=== PATIENT | male | born 1950 | race Native Hawaiian/Other Pacific Islander ===

== ENCOUNTER 2016-10-19 14:37 | Observation (INO) | payer MEDICARE, MEDICAID ==
[~2016-10-19] VITALS: Ht 170.2 cm; Wt 94.0 kg
[~2016-10-19 14:37] MED LIST: ACET325S8 PO; CLOP75 PO; KLOR20TA6 PO; LISI-363 PO; METO100T PO; OMEP20TA PO; ROSU20 PO; ZOFR4TAB3 SL
[2016-10-19 14:40] VITALS: BP 203/95; PULSE 84; RESP 24; TEMP 98.6; O2SAT 95
[2016-10-19 14:53] VITALS: BP_SYST 183; BP_SYST 196; BP_DIAS 80; BP_DIAS 83; PULSE 73; RESP 18; O2SAT 98
[2016-10-19] MEDS ORDERED: SODIUM CHLORIDE 0.9% FLUSH 10 ML FLUSH IVF PRN (15:00)
[2016-10-19] MEDS ORDERED: NITROGLYCERIN 0.4 MG SL 25 TABS/BTL SL ONE (15:15)
[2016-10-19] MEDS ORDERED: ASPIRIN 325 MG TAB PO ONE (15:15)
[2016-10-19 15:46] LABS: AUTOMATED NEUTROPHIL # 7.5 TH/MM3 (1.8-7.7); BASOPHIL # 0.1 TH/MM3 (0-0.2); BASOPHIL % 0.5 % (0.0-2.0); EOSINOPHIL # 0.1 TH/MM3 (0-0.4); EOSINOPHIL % 0.7 % (0.0-4.0); HEMATOCRIT 44.5 % (39.0-51.0); HEMO FLAGS DIFF FINAL; LYMPH % 19.4 % (9.0-44.0); LYMPHOCYTE # 2.1 TH/MM3 (1.0-4.8); MEAN CORPUSCULAR HGB CONC 32.5 % (32.0-36.0); MONO % 9.7 % (0.0-8.0); NEUT % 69.7 % (16.0-70.0); PLATELET COUNT 163 TH/MM3 (150-450); RED BLOOD COUNT 5.56 MIL/MM3 (4.50-5.90); RED CELL DISTRIBUTION WIDTH 15.1 % (11.6-17.2); WHITE BLOOD COUNT 10.8 TH/MM3 (4.0-11.0)
[2016-10-19 15:53] LABS: APTT (PATIENT) 27.9 SEC (24.3-30.1); PROTHROMBIN TIME - PATIENT 11.4 SEC (9.8-11.6)
[2016-10-19 15:59] LABS: ALT (GPT) 29 U/L (12-78); ANION GAP 9 MEQ/L (5-15); AST (GOT) 21 U/L (15-37); BLOOD UREA NITROGEN 16 MG/DL (7-18); CHLORIDE 100 MEQ/L (98-107); GLOMERULAR FILTRATION RATE 73 ML/MIN (>89); MAGNESIUM 2.3 MG/DL (1.5-2.5); SODIUM (NA) 140 MEQ/L (136-145)
[2016-10-19 16:00] VITALS: BP 156/79; PULSE 75; RESP 16; O2SAT 100
[2016-10-19 16:03] LABS: ALKALINE PHOSPHATASE 91 U/L (45-117); CREATINE KINASE 253 U/L (39-308); TOTAL BILIRUBIN ADULT 0.6 MG/DL (0.2-1.0)
--- NOTE | 2016-10-19 16:11 | RADRPT ---
EXAM DATE/TIME: 10/19/2016 15:17 [facility] COMPARISON: No previous studies available for comparison. INDICATIONS : Chest pain. MEDICAL HISTORY : Myocardial infarction. Hypercholesterolemia. Coronary artery disease. SURGICAL HISTORY : Stent. ENCOUNTER: Initial ACUITY: 3 days PAIN SCORE: 10/10 LOCATION: Bilateral chest FINDINGS: The lungs are clear without infiltrate, nodule, or mass. There is no appreciable pleural effusion fo r technique. Slight cardiomegaly is seen. CONCLUSION: Slight cardiomegaly. Lincoln Kothari MD on October 19, 2016 at 16:08 Board Certified Radiologist. This report was verified electronically.
[2016-10-19 16:17] LABS: CKMB 1.7 NG/ML (0.5-3.6)
--- NOTE | 2016-10-19 16:57 | PD ---
HPI Chief Complaint: Cardiac Complaint Time Seen by Provider: 15:07 Travel History International Travel<30 days: No Contact w/Intl Traveler<30days: No Traveled to known affect area: No History of Present Illness HPI 65 y/o male presents with chest pain over the past couple of days. He denies other associated symptoms. He states he had a heart workup with an MRI where he ate something couple months ago but he doesn't remember what the test was called. He states this was through his commercial analyst Dr. Eugene. He states that he has had heart stents before and that was his last heart catheterization. He does not recall the exact date. He states he did not take an aspirin since he is on Plavix. He denies any modifying factors. Quality is pressure. Severity is moderate. He states he follows with his commercial analyst regularly. He states the pain goes into his left arm. PFSH Past Medical History Arthritis: No Asthma: No Autoimmune Disease: No Blood Disorders: No Anxiety: No Depression: No Heart Rhythm Problems: No Cancer: No Cardiovascular Problems: Yes (STENT X 6) High Cholesterol: Yes Chemotherapy: No Chest Pain: No Congestive Heart Failure: No COPD: No Cerebrovascular Accident: No Coronary Artery Disease: Yes Diabetes: No Patient Takes Glucophage: No Diminished Hearing: No Endocrine: No Gastrointestinal Disorders: No GERD: No Glaucoma: No Genitourinary: No Headaches: No Hepatitis: No Hiatal Hernia: No Heparin Induced Thrombocytopen: No Hypertension: Yes Immune Disorder: No Implanted Vascular Access Dvce: No Kidney Stones: No Medical other: Yes (GOUT) Musculoskeletal: No Neurologic: No Psychiatric: No Reproductive: No Respiratory: No Integumentary: No Immunizations Current: Yes Radiation Therapy: No Renal Failure: No Seizures: No Sickle Cell Disease: No Sleep Apnea: Yes Thyroid Disease: No Ulcer: No ?: Not Past Surgical History Abdominal Surgery: Yes (GALL BLADDER REMOVED) AICD: No Arteriovenous Shunt: No Body Medical Devices: CORONARY STENT 4 months ago Cardiac Surgery: Yes (STENT X 6) Cholecystectomy: Yes Ear Surgery: No Endocrine Surgery: No Eye Surgery: No Genitourinary Surgery: No Gynecologic Surgery: No Insulin Pump: No Joint Replacement: No Neurologic Surgery: No Oral Surgery: No Pacemaker: No Thoracic Surgery: No Tonsillectomy: Yes Other Surgery: Yes (VSTENTS X 6) Social History Alcohol Use: Yes (on occasion) Tobacco Use: No Substance Use: No Allergies-Medications (Allergen,Severity, Reaction): Coded Allergies: No Known Allergies (Verified , 07/16/13) Reported Meds & Prescriptions Reported Meds & Active Scripts Active Review of Systems Except as stated in HPI: all other systems reviewed are Neg Physical Exam Exam Limitations: Poor Historian Narrative GENERAL: Well-nourished, well-developed patient. SKIN: Warm and dry. HEAD: Normocephalic and atraumatic. EYES: No injection or drainage. ENT: No nasal drainage noted. NECK: Supple, trachea midline. CARDIOVASCULAR: Regular rate and rhythm RESPIRATORY: Breath sounds equal bilaterally. No accessory muscle use. GASTROINTESTINAL: Abdomen soft, non-tender, nondistended. NEUROLOGICAL: Awake and alert. Moves all extremities. Normal speech. Data Data Last Documented VS Vital Signs Date Time Temp Pulse Resp B/P Pulse Ox O2 Delivery O2 Flow Rate FiO2 10/19/16 16:00 75 16 156/79 100 Room Air 10/19/16 14:40 98.6 Orders Electrocardiogram (10/19/16 14:49) Ckmb (Isoenzyme) Profile (10/19/16 14:49) Complete Blood Count With Diff (10/19/16 14:49) Comprehensive Metabolic Panel (10/19/16 14:49) Magnesium (Mg) (10/19/16 14:49) Prothrombin Time / Inr (Pt) (10/19/16 14:49) Act Partial Throm Time (Ptt) (10/19/16 14:49) Troponin I (10/19/16 14:49) Chest, Single Ap (10/19/16 14:49) Ecg Monitoring (10/19/16 14:49) Bilateral Bp Monitoring (10/19/16 14:49) Iv Access Insert/Monitor (10/19/16 14:49) Oximetry (10/19/16 14:49) Oxygen Administration (10/19/16 14:49) Sodium Chloride 0.9% Flush (Ns Flush) (10/19/16 15:00) Aspirin (Aspirin) (10/19/16 15:15) Nitroglycerin Sl (Nitrostat Sl) (10/19/16 15:15) CKMB (10/19/16 14:45) CKMB% (10/19/16 14:45) Admit Order (Ed Use Only) (10/19/16 16:26) Labs Laboratory Tests Test 10/19/16 14:45 White Blood Count 10.8 TH/MM3 Red Blood Count 5.56 MIL/MM3 Hemoglobin 14.5 GM/DL Hematocrit 44.5 % Mean Corpuscular Volume 80.0 FL Mean Corpuscular Hemoglobin 26.0 PG Mean Corpuscular Hemoglobin 32.5 % Concent Red Cell Distribution Width 15.1 % Platelet Count 163 TH/MM3 Mean Platelet Volume 9.9 FL Neutrophils (%) (Auto) 69.7 % Lymphocytes (%) (Auto) 19.4 % Monocytes (%) (Auto) 9.7 % Eosinophils (%) (Auto) 0.7 % Basophils (%) (Auto) 0.5 % Neutrophils # (Auto) 7.5 TH/MM3 Lymphocytes # (Auto) 2.1 TH/MM3 Monocytes # (Auto) 1.0 TH/MM3 Eosinophils # (Auto) 0.1 TH/MM3 Basophils # (Auto) 0.1 TH/MM3 CBC Comment DIFF FINAL Differential Comment Prothrombin Time 11.4 SEC Prothromb Time International 1.0 RATIO Ratio Activated Partial 27.9 SEC Thromboplast Time Sodium Level 140 MEQ/L Potassium Level 3.0 MEQ/L Chloride Level 100 MEQ/L Carbon Dioxide Level 31.0 MEQ/L Anion Gap 9 MEQ/L Blood Urea Nitrogen 16 MG/DL Creatinine 1.02 MG/DL Estimat Glomerular Filtration 73 ML/MIN Rate Random Glucose 88 MG/DL Calcium Level 9.2 MG/DL Magnesium Level 2.3 MG/DL Total Bilirubin 0.6 MG/DL Aspartate Amino Transf 21 U/L (AST/SGOT) Alanine Aminotransferase 29 U/L (ALT/SGPT) Alkaline Phosphatase 91 U/L Total Creatine Kinase 253 U/L Creatine Kinase MB 1.7 NG/ML Troponin I LESS THAN 0.02 NG/ML Total Protein 7.6 GM/DL Albumin 3.9 GM/DL [facility] Medical Decision Making Medical Screen Exam Complete: Yes Emergency Medical Condition: Yes Medical Record Reviewed: Yes (cardiac catheterization from 2011 reviewed with 2 cardiac stents, no recent cardiac workup in our system) Interpretation(s) EKG shows NSR, no ST elevation or depression, and no arrhythmias. No significant T-wave inversions. CBC & BMP Diagram 10/19/16 14:45 Last 24 hours Impressions Chest X-Ray 10/19/16 2257 Signed Impressions: Service Date/Time: Wednesday, October 19, 2016 15:17 - CONCLUSION: Slight cardiomegaly. Lincoln Kothari MD Differential Diagnosis Angina, gastritis, musculoskeletal Narrative Course Will check blood work, EKG, chest x-ray and dose with aspirin and nitroglycerin and reevaluate ED workup no acute, agrees to observation and updated Physician Communication Physician Communication Dr. Ferreira states to place in chest pain center and have them call him tomorrow so he can review records after his serial EKG and troponin to determine if he needs stress testing Diagnosis Primary Impression: Chest pain Qualified Code: R07.9 - Chest pain, unspecified type Admitting Information Admitting Physician Requests: Observation Nanci Whitfield MD Oct 19, 2016 16:57
[2016-10-19 17:45] VITALS: BP 126/64; PULSE 66; RESP 16; O2SAT 100
[2016-10-19] MEDS ORDERED: ROSU20 PO (17:54)
[2016-10-19] MEDS ORDERED: OMEP20TA PO (17:54)
[2016-10-19] MEDS ORDERED: METO100T PO (17:54)
[2016-10-19] MEDS ORDERED: KLOR25PO2 (17:54)
[2016-10-19] MEDS ORDERED: PLAV75TA29 PO (17:54)
[2016-10-19] MEDS ORDERED: HYDR12.57 PO (17:56)
[2016-10-19] MEDS ORDERED: CLON0.1T PO (17:56)
[2016-10-19] MEDS ORDERED: SODIUM CHLORIDE 0.9% FLUSH 10 ML FLUSH IV FLUSH PRN (18:15)
[2016-10-19 20:13] LABS: CREATINE KINASE 210 U/L (39-308)
[2016-10-19 20:26] LABS: CKMB 1.4 NG/ML (0.5-3.6)
[2016-10-19 20:45] VITALS: BP 163/78; PULSE 67; RESP 18; TEMP 98.3; O2SAT 95
[2016-10-19 21:05] VITALS: PULSE 66
[2016-10-19] MEDS ORDERED: ACETAMINOPHEN 500 MG CPLT PO PRN (21:45)
[2016-10-19 22:27] LABS: CREATINE KINASE 199 U/L (39-308)
[2016-10-19] MEDS: traMADol HCL 50 MG TAB PO PRN (22:34)
[2016-10-19] MEDS: SODIUM CHLORIDE 0.9% FLUSH 10 ML FLUSH IV FLUSH SCH (22:34)
[2016-10-19 22:39] LABS: CKMB 1.3 NG/ML (0.5-3.6)
[2016-10-20] VITALS (13 sets, daily range): BP systolic 141–181; BP diastolic 68–85; PULSE 57–78; RESP 15–20; TEMP 97.8–98.7; O2SAT 95–98
[2016-10-20] MEDS: SODIUM CHLORIDE 0.9% FLUSH 10 ML FLUSH IV FLUSH SCH ×2 (09:00→22:40)
[2016-10-20] MEDS ORDERED: KETOROLAC TROMETHAMINE 30 MG/ML (IVP) VIAL ONE (10:11)
[2016-10-20] MEDS ORDERED: METOPROLOL TARTRATE 100 MG TAB ONE (11:07)
[2016-10-20] MEDS ORDERED: POTASSIUM CHLORIDE 20 MEQ CONTROLLED RELEASE TAB PO ONE ×2 (11:07→13:15)
[2016-10-20] MEDS ORDERED: CLOPIDOGREL 75 MG TAB ONE (11:07)
[2016-10-20] MEDS ORDERED: HYDROCHLOROTHIAZIDE 25 MG TAB ONE (11:08)
[2016-10-20] MEDS ORDERED: ENALAPRIL MALEATE 10 MG TAB ONE (11:08)
[2016-10-20] MEDS: ENALAPRIL MALEATE 10 MG TAB PO SCH (11:12)
[2016-10-20] MEDS: METOPROLOL TARTRATE 100 MG TAB PO SCH ×3 (11:12→22:39)
[2016-10-20] MEDS: traMADol HCL 50 MG TAB PO PRN ×2 (11:12→22:40)
[2016-10-20] MEDS: HYDROCHLOROTHIAZIDE 25 MG TAB PO SCH (11:12)
[2016-10-20] MEDS: CLOPIDOGREL 75 MG TAB PO SCH (11:12)
[2016-10-20] MEDS ORDERED: TRAM50TA PO (13:15)
[2016-10-20] MEDS ORDERED: KETOROLAC TROMETHAMINE 30 MG/ML (IVP) VIAL IV PUSH ONE (13:30)
--- NOTE | 2016-10-20 16:31 | EKG ---
Date Performed: 10/19/2016 Time Performed: 21:36:52 PTAGE: 65 years EKG: Sinus rhythm POSSIBLE LEFT ATRIAL ENLARGEMENT NONSPECIFIC T-WAVE ABNORMALITY BORDERLINE ECG PREVIOUS TRACING : 10/19/2016 18.29 Since previous tracing, no significant change noted DOCTOR: Darryl Davis Interpretating Date/Time 10/21/2016 07:55:26
--- NOTE | 2016-10-20 16:32 | EKG ---
Date Performed: 10/19/2016 Time Performed: 18:29:33 PTAGE: 65 years EKG: Sinus rhythm POSSIBLE LEFT ATRIAL ENLARGEMENT NONSPECIFIC T-WAVE ABNORMALITY BORDERLINE ECG PREVIOUS TRACING : 10/19/2016 14.45 Since previous tracing, no significant change noted DOCTOR: Darryl Davis Interpretating Date/Time 10/20/2016 16:31:54
--- NOTE | 2016-10-20 16:34 | EKG ---
Date Performed: 10/19/2016 Time Performed: 14:45:43 PTAGE: 65 years EKG: Sinus rhythm POSSIBLE LEFT ATRIAL ENLARGEMENT NONSPECIFIC T-WAVE ABNORMALITY BORDERLINE ECG INTERPRETATION BASED ON A DEFAULT AGE OF 40 YEARS Since PREVIOUS TRACING , no significant change noted DOCTOR: Darryl Davis Interpretating Date/Time 10/20/2016 16:34:01
--- NOTE | 2016-10-20 16:39 | HHI.HP ---
HPI Primary Care Physician Unknown Chief Complaint Chest pain History of Present Illness Mr. Jauregui is a 65-year-old male patient with a known medical history of dyslipidemia, hypertension and CAD with stent placement x 6 who presented to the ED by private vehicle with complaints of chest pain. Patient states that around 0300 yesterday morning he woke up with sudden tightness in his chest and left elbow. Denies any associated nausea, vomiting, diaphoresis. Patient states that this pain was pressure-like in nature. Pain lasted from 0300 - 1500, finally subsided when given Nitroglycerin SL in the ED. States ambulation and increased activity made it worse, and deep breathing making it better. Pain is reproducible to palpation. But also states that this pain is similar in nature to when he had needed his previous stents. Dr. Eugene is his liability analyst and last saw him 6 months ago with a negative chemical stress test. Review of Systems Respiratory: COMPLAINS OF: See HPI, Shortness of breath Cardiovascular: COMPLAINS OF: See HPI, Chest pain General: Patient denies fevers, chills recent, and recent travel HEENT: Patient denies headache, sore throat, difficulty swallowing. Cardiovascular: Has the chest discomfort as mentioned above. Denies sensation of heart beating rapidly or irregularly. No syncope. Complains of diaphoresis. Respiratory: Denies shortness of breath or inspirational chest discomfort. Denies coughing wheezing or hemoptysis. GI: Patient denies nausea, vomiting, diarrhea, abdominal pain, bloody stools. Musculoskeletal: Patient denies joint pain or edema. Denies calf pain or edema. Neurovascular: Patient denies numbness, tingling, weakness in extremities. Denies headache. Endocrine: Denies polyuria and polydipsia. Hematologic: Denies easy bruising. Skin: Denies rash or itching. Past Family Social History Allergies: Coded Allergies: No Known Allergies (Verified , 07/16/13) Past Medical History Hypertension Dyslipidemia CAD with 6 stents Gout Past Surgical History Cholecystectomy Reported Medications Reported Meds & Active Scripts Active Reported Tramadol (Tramadol HCl) 50 Mg Tab 50 Mg PO Q8H PRN Hydrochlorothiazide 12.5 Mg Cap 12.5 Mg PO DAILY Clonidine (Clonidine HCl) 0.1 Mg Tab 0.1 Mg PO BID Crestor (Rosuvastatin Calcium) 20 Mg Tab 20 Mg PO HS Klor-Con 25 (Potassium Chloride) 25 Meq Pow Omeprazole 20 Mg Tab 20 Mg PO DAILY Metoprolol Tartrate 100 Mg Tab 100 Mg PO BID Plavix (Clopidogrel Bisulfate) 75 Mg Tab 75 Mg PO DAILY Active Ordered Medications Current Medications Medications (Trade) Dose Ordered Sig/Cassie Route Start Time Stop Time Status Last Admin (NS Flush) 2 ml UNSCH PRN IV FLUSH 10/19/16 18:15 (NS Flush) 2 ml BID IV FLUSH 10/19/16 21:00 10/20/16 09:00 (Ultram) 100 mg Q4H PRN PO 10/19/16 21:45 10/20/16 11:12 (Tylenol) 1,000 mg Q8H PRN PO 10/19/16 21:45 (Lopressor) 100 mg Q8HR PO 10/20/16 09:00 10/20/16 11:12 (Plavix) 75 mg DAILY PO 10/20/16 14:00 10/20/16 11:12 (Vasotec) 10 mg DAILY PO 10/20/16 14:00 10/20/16 11:12 (Hydrodiuril) 25 mg DAILY PO 10/20/16 14:00 10/20/16 11:12 Family History Denies any significant family medical history of cardiovascular disease. Social History Denies any current tobacco use. Denies any alcohol use. Denies any illicit drug use. Physical Exam Vital Signs Vital Signs Date Time Temp Pulse Resp B/P (MAP) Pulse Ox O2 Delivery O2 Flow Rate FiO2 10/20/16 13:50 58 10/20/16 11:00 98.6 70 17 141/68 (92) 95 10/20/16 07:53 96 21 10/20/16 07:33 67 15 174/82 (112) 98 10/20/16 04:00 66 10/20/16 03:23 98.0 71 18 146/69 (94) 98 10/20/16 02:36 21 10/20/16 00:04 98.5 65 18 151/72 (98) 95 10/20/16 00:00 66 10/19/16 23:54 18 10/19/16 21:05 66 10/19/16 20:45 98.3 67 18 163/78 (106) 95 10/19/16 17:45 66 16 126/64 (84) 100 Room Air Physical Exam GENERAL: This is a well-nourished, well-developed patient, in no apparent distress. Patient speaks in clear complete sentences. Patient is pleasant. HEENT: Head is atraumatic and normocephalic. Neck is supple without lymphadenopathy and trachea is midline. No JVD or carotid bruits. CARDIOVASCULAR: Regular rate and rhythm without murmurs, gallops, or rubs. RESPIRATORY: Clear to auscultation. Breath sounds equal bilaterally. No wheezes , rales, or rhonchi. Chest wall is nontender. No use of accessory muscles. GASTROINTESTINAL: Abdomen is nontender, nondistended. Abdomen soft. No obvious pulsatile mass or bruit. No CVA tenderness. Strong femoral pulses bilaterally. Normal bowel sounds in all quadrants. MUSCULOSKELETAL: Patient is moving upper and lower extremities freely. No calf tenderness or edema, no Homans sign. Strong pulses in upper and lower extremities. NEUROLOGICAL: Patient is alert and oriented. Cranial nerves 2-12 are grossly intact. No focal deficits and speech is clear. SKIN: No rash and turgor is normal. Laboratory Laboratory Tests Test 10/19/16 18:35 10/19/16 21:45 Total Creatine Kinase 210 199 Creatine Kinase MB 1.4 1.3 Troponin I LESS THAN 0.02 LESS THAN 0.02 Result Diagram: 10/19/16 1445 10/19/16 1445 Imaging Chest x-ray reveals nothing acute. Course EKG is sinus rhythm nonspecific T-wave changes. Caprini VTE Risk Assessment Caprini VTE Risk Assessment: Mod/High Risk (score >= 2) Caprini Risk Assessment Model Point Value = 1 Point Value = 2 Point Value = 3 Point Value = 5 Age 41-60 Minor surgery BMI > 25 kg/m2 Swollen legs Varicose veins or History of unexplained or recurrent spontaneous Oral contraceptives or hormone replacement Sepsis (< 1 month) Serious lung disease, including pneumonia (< 1 month) Abnormal pulmonary function Acute myocardial infarction Congestive heart failure (< 1 month) History of inflammatory bowel disease Medical patient at bed rest Age 61-74 Arthroscopic surgery Major open surgery (> 45 min) Laparoscopic surgery (> 45 min) Malignancy Confined to bed (> 72 hours) Immobilizing plaster cast Central venous access Age >= 75 History of VTE Family history of VTE Factor V Leiden Prothrombin [id number] Lupus anticoagulant Anticardiolipin antibodies Elevated serum homocysteine Heparin-induced thrombocytopenia Other congenital or acquired thrombophilia Stroke (< 1 month) Elective arthroplasty Hip, pelvis, or leg fracture Acute spinal cord injury (< 1 month) Prophylaxis Regimen Total Risk Factor Score Risk Level Prophylaxis Regimen 0-1 Low Early ambulation 2 Moderate Order ONE of the following: *Sequential Compression Device (SCD) *Heparin 5000 units SQ BID 3-4 Higher Order ONE of the following medications: *Heparin 5000 units SQ TID *Enoxaparin/Lovenox 40 mg SQ daily (WT < 150 kg, CrCl > 30 mL/min) *Enoxaparin/Lovenox 30 mg SQ daily (WT < 150 kg, CrCl > 10-29 mL/min) *Enoxaparin/Lovenox 30 mg SQ BID (WT < 150 kg, CrCl > 30 mL/min) AND/OR *Sequential Compression Device (SCD) 5 or more Highest Order ONE of the following medications: *Heparin 5000 units SQ TID (Preferred with Epidurals) *Enoxaparin/Lovenox 40 mg SQ daily (WT < 150 kg, CrCl > 30 mL/min) *Enoxaparin/Lovenox 30 mg SQ daily (WT < 150 kg, CrCl > 10-29 mL/min) *Enoxaparin/Lovenox 30 mg SQ BID (WT < 150 kg, CrCl > 30 mL/min) AND *Sequential Compression Device (SCD) Assessment and Plan Assessment and Plan * Chest pain: Admitted to the chest pain center. Serial EKGs and serial troponins ordered for ruling out purposes. All unremarkable. CXR negative. Patient has been seen and examined by Dr. Davis in the chest pain center and upon listening to history and characterics of chest pain it was determined patient would benefit from a Lexiscan. Patient had decaffeinated coffee and tea this morning. Per protocol patient should wait 12 hours before performed exam. Will plan for Lexiscan in am. If no ischemia, patient will be discharged home and encouraged to follow up with Dr. Eugene in the outpatient setting. * Hypertension: Continue home Enalapril HCTZ. Monitor BP. Patient is stable at this time and agreeable to the plan. Michael Flores Oct 20, 2016 16:39
[2016-10-21] VITALS: BP 159/74; PULSE 60
[2016-10-21 04:00] VITALS: PULSE 54
[2016-10-21 04:30] VITALS: BP 152/71; PULSE 57; RESP 18; TEMP 98.2; O2SAT 97
[2016-10-21] MEDS: METOPROLOL TARTRATE 100 MG TAB PO SCH (05:56)
[2016-10-21 08:22] VITALS: BP 165/77; PULSE 57; RESP 20; TEMP 97.8; O2SAT 97
[2016-10-21 08:45] VITALS: PULSE 55
[2016-10-21] MEDS: traMADol HCL 50 MG TAB PO PRN (09:05)
[2016-10-21] MEDS: CLOPIDOGREL 75 MG TAB PO SCH (09:05)
[2016-10-21] MEDS: ENALAPRIL MALEATE 10 MG TAB PO SCH (09:06)
[2016-10-21] MEDS: HYDROCHLOROTHIAZIDE 25 MG TAB PO SCH (09:06)
[2016-10-21] MEDS: SODIUM CHLORIDE 0.9% FLUSH 10 ML FLUSH IV FLUSH SCH (09:07)
[2016-10-21] MEDS ORDERED: REGADENOSON INJ 0.4 MG/5 ML SYR ONE (09:52)
--- NOTE | 2016-10-21 10:50 | TR ---
Date Performed: 10/21/2016 Time Performed: 10:04:34 DOCTOR: Darryl Davis DRUG LIST: CLINICAL HISTORY: ANGINA REASON FOR TEST: Angina REASON FOR ENDING: OBSERVATION: CONCLUSION: Lexiscan stress test was performed under standard four minute protocol. Radionuclid e was injected one minute prior to ending the test. No electrocardiographic abormalities were present to suggest ischemia. Nuclear imaging and interpretation are pending. COMMENTS:
--- NOTE | 2016-10-21 11:08 | RADRPT ---
EXAM DATE/TIME: 10/21/2016 09:19 [facility] COMPARISON: No previous studies available for comparison. INDICATIONS : Chest tightness and cardiomegaly. Angina. Coronary artery disease. DOSE: 26.2 mCi Tc99m Myoview at stress. 8.1 mCi Tc99m Myoview at rest. 0.4 mg Lexiscan STRESS SYMPTOMS: Dyspnea. EJECTION FRACTION: 44% MEDICAL HISTORY : Hypertension. Myocardial infarction. SURGICAL HISTORY : Cholecystectomy. Coronary artery stent. ENCOUNTER: Initial ACUITY: 1 day PAIN SCALE: 2/10 LOCATION: Bilateral chest TECHNIQUE: The patient underwent pharmacologic stress with infusion of prescribed dose. Continuous ECG tracing was monitored during stress. Gated SPECT imaging was performed after stress and conventional SPECT i maging was performed at rest. The examination was performed on a SPECT/CT scanner, both attenuation and non-corrected datasets were reviewed. FINDINGS: DISTRIBUTION: The maximum perfused segment at stress is in the septal wall. PERFUSION STUDY: The pattern of perfusion at stress is within normal limits. GATED STUDY: There is intact wall motion and thickening without dyskinetic segments. Slight global hypokinesia. CONCLUSION: 1. No reversible perfusion defects to suggest ischemia. 2. Ejection fraction 44%. RISK CATEGORY: Low (<1% Annual Mortality Rate) Lenard Enriquez MD on October 21, 2016 at 11:03 Board Certified Radiologist. This report was verified electronically.
--- NOTE | 2016-10-21 11:28 | HHI.DCPOC ---
Discharge Care Plan Diagnosis: (1) Chest pain Goals to Promote Your Health * To prevent worsening of your condition and complications * To maintain your health at the optimal level Directions to Meet Your Goals Take your medications as prescribed Follow your dietary instruction Follow activity as directed Keep your appointments as scheduled Take your immunizations and boosters as scheduled If your symptoms worsen call your PCP, if no PCP go to Urgent Care Center or Emergency Room Smoking is Dangerous to Your Health. Avoid second hand smoke Call the 24-hour hour crisis hotline for domestic abuse at Celeste Torres Oct 21, 2016 11:28
== END 2016-10-21 13:25 | disposition home or self-care (01) ==
LOC: NEPC 14:37 → NEDA 16:28 → NEPHCDU 20:15
DX: R07.89 Other chest pain (principal); E78.5 Hyperlipidemia, unspecified; I11.0 Hypertensive heart disease with heart failure; I50.9 Heart failure, unspecified; I25.10 Atherosclerotic heart disease of native coronary artery without angina pectoris; I51.7 Cardiomegaly; G47.30 Sleep apnea, unspecified; M10.9 Gout, unspecified; Z95.5 Presence of coronary angioplasty implant and graft; E78.00 Pure hypercholesterolemia, unspecified; Z79.899 Other long term (current) drug therapy
CPT/HCPCS: 71010; 78452; 80053; 82550; 82552; 83735; 84484; 85025; 85610; 85730; 93005; 93017; 96374; 96376; 99285; A9502; G0378; J1885; J2785